=== PATIENT | female | born 1985 | race Caucasian/White ===

== ENCOUNTER 2023-06-24 02:30 | Emergency (ER) | payer OTHER, SELFPAY ==
[2023-06-24 02:35] VITALS: BP 124/82; PULSE 63; RESP 18; TEMP 36.4; O2SAT 97; BMI 33.4
--- NOTE | 2023-06-24 03:57 | ED.BACK ---
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 this happened at work MD elicited complaint: other (R trapezius pain) Pertinent past history: recent trauma Onset (ago): hour(s) (few) Timing: constant Severity: moderate Similar Symptoms Previously: No Quality: burning and sharp Location: right upper back Radiation: other (across shoulder) Exacerbating factors: immobilization Relieving factors: movement Context: while lifting and turning/twisting Associated symptoms: denies other symptoms Work related injury: Yes Related Data Previous Rx's Medication Instructions Recorded cyclobenzaprine 10 mg tablet 10 mg PO TID PRN muscle spasm #20 06/24/23 tabs lidocaine 5 % topical patch 1 patch topical DAILY #30 ea 06/24/23 Allergies Allergy/AdvReac Type Severity Reaction Status Date / Time No Known Allergies Allergy Verified 06/24/23 02:33 Review of Systems Review of Systems: Constitutional : No Weight loss, No Fever, No Chills, ENT/Mouth : No Hearing loss, No Ear Pain, No Nasal Congestion, No Sinus Pain, No Hoarseness, No sore throat, No Rhinorrhea, No Swallowing Difficulty Cardiovascular : No Chest Pain, No SOB Respiratory : No Cough, No Dyspnea Gastrointestinal : No Nausea, No Vomiting, No Diarrhea, No abdominal Pain, No Hematochezia, No Melena Genitourinary : No Dysuria, No Urinary Frequency, No Hematuria, No Urinary Incontinence, Musculoskeletal : positive back pain Skin : No Skin Lesions, No rash Neuro : No Weakness, No Numbness, No Paresthesias, no loss of bowel or bladder incontinence, no saddle anesthesia [facility] Past Medical History Attestation statement: The following information was validated with the patient. Source: old records reviewed Medical History No pertinent past medical history Social History Social History (Updated 06/24/23 @ 04:13 by Dora Hsieh DO) Patient Tobacco Use Status: Never used Tobacco Physical Exam Vital Signs: Vital Signs: Last Vital Signs Temp 97.6 F 06/24/23 02:35 Pulse 63 06/24/23 02:35 Resp 18 06/24/23 02:35 BP 124/82 06/24/23 02:35 Pulse Ox 97 06/24/23 02:35 O2 Del Method Room Air 06/24/23 02:35 BMI result Body Mass Index 33.4 Appearance: Alert. Oriented X3. No acute distress. Eyes: Pupils equal, round and reactive to light. ENT: Pharynx normal. Neck: Normal inspection. Neck supple. Back: R trapezius ttp with obvious swelling though it is mild distal NV intact the rotator cuff testing is normal neg spurling test of the neck CVS: Normal heart rate and rhythm. Pulses normal. Respiratory: No respiratory distress. Breath sounds normal. Abdomen: Soft and nontender. Skin: Skin warm and dry. Normal skin color. Extremities: No lower extremity edema. Neuro: Oriented X 3. No motor deficit. No sensory deficit. Medical Decision Making Medical Decision Making MDM Narrative: 37 yo female otherwise healthy NV intact here with R trapezius likely tear following heavy lifting no signs of cervical radiculopathy will start on muscle relaxers and lidocaine patches put out of work. no fracture suspected. Differential Diagnosis Differential Diagnoses: The differential diagnosis associated with the presentation includes strain, tear, sprain Prescription Management I considered prescription management with: Pain Medication and Other Discharge Plan Discharge Clinical Impression: Strain of thoracic back region Patient Disposition: Home, Self-Care Instructions: Muscle Strain (ED) Additional Instructions: return for numbness, weakness worsening symptoms you need to follow up with work connection on Monday to get cleared for work Prescriptions: New cyclobenzaprine 10 mg tablet 10 mg PO TID PRN (Reason: muscle spasm) Qty: 20 0RF lidocaine 5 % adhesive patch,medicated 1 patch topical DAILY Qty: 30 0RF Rx Instructions: leave on most painful area for up to 12 hrs Referrals: Alexei Barnes MD [Physician] - (any provider) Stand Alone Forms: Work/School Release
[2023-06-24 04:00] VITALS: BP 113/73; PULSE 54; RESP 16; TEMP 36.8; O2SAT 100
[2023-06-24] MEDS: Cyclobenzaprine HCl 10 MG TABLET PO (04:24)
[2023-06-24] MEDS: Lidocaine 4 % Patch ADH..PATCH 1 PATCH TRANSDERMA (04:24)
[2023-06-24 04:28] VITALS: BP 113/73; PULSE 54; RESP 16; TEMP 36.8; O2SAT 100
== END 2023-06-24 04:33 | disposition home or self-care (01) ==
PROVIDERS: Emergency Provider Emergency Medicine; PCP Internal Medicine
DX: S29.012A Strain of muscle and tendon of back wall of thorax, initial encounter (principal); X50.9XXA Other and unspecified overexertion or strenuous movements or postures, initial encounter; Y93.F2 Activity, caregiving, lifting; Y92.89 Other specified places as the place of occurrence of the external cause; Y99.0 Civilian activity done for income or pay; M54.89 Other dorsalgia
CPT/HCPCS: 99283

== ENCOUNTER → 2023-06-28 13:05 | Outpatient (BNVA) | payer OTHER, SELFPAY | PROVIDERS: PCP Internal Medicine; Visit Provider Physician Assistant | DX: Z13.89 Encounter for screening for other disorder (principal) | CPT/HCPCS: 99204 ==

== ENCOUNTER → 2023-06-30 15:32 | Outpatient (BNVA) | payer OTHER, SELFPAY | PROVIDERS: PCP Internal Medicine; Visit Provider Physician Assistant | DX: Z13.89 Encounter for screening for other disorder (principal) | CPT/HCPCS: 99213 ==

== ENCOUNTER → 2023-07-14 07:49 | Outpatient (BNVA) | payer OTHER, SELFPAY | PROVIDERS: PCP Internal Medicine; Visit Provider Physician Assistant | DX: Z13.89 Encounter for screening for other disorder (principal) | CPT/HCPCS: 99213 ==

== ENCOUNTER → 2023-08-03 09:35 | Outpatient (BNVA) | payer OTHER, SELFPAY | PROVIDERS: PCP Internal Medicine; Visit Provider Physician Assistant | DX: Z13.89 Encounter for screening for other disorder (principal) | CPT/HCPCS: 99213 ==

== ENCOUNTER → 2023-08-14 07:46 | Outpatient (BNVA) | payer OTHER, SELFPAY | PROVIDERS: PCP Internal Medicine; Visit Provider Physician Assistant Medical | DX: Z13.89 Encounter for screening for other disorder (principal) | CPT/HCPCS: 99213 ==

== ENCOUNTER → 2023-08-31 09:18 | Outpatient (BNVA) | payer OTHER, SELFPAY | PROVIDERS: PCP Internal Medicine; Visit Provider Physician Assistant Medical | DX: Z13.89 Encounter for screening for other disorder (principal) | CPT/HCPCS: 99213 ==

== ENCOUNTER 2023-09-07 08:00 | Outpatient (RCR) | payer OTHER, SELFPAY ==
--- NOTE | 2023-07-14 16:16 | MHC.PT.EP ---
[facility] [place] Office [place] Office [place] Office [address] Adam Vargas [address] [phone] F: [phone] F: [phone] F: [phone] F: [phone] Physical Therapy Plan of Care Date of Evaluation: 07/14/23 Date of Surgery: Diagnosis: RIGHT shoulder and upper back strain/trapezius strain (RS) Assessment: Patient is a pleasant 37 y.o. 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 PT diagnosis is trapezius strain. Patient impairments include portual imbalances, limited ROM, weakness, pain. Patient current functional limitations are unable to perform work tasks as RN, reaching, lift/carrying, reaching behind the back, holding arm to wash hair, difficulty with undershirts. Patient will benefit from skilled PT to address aforementioned impairments and functional limitations to meet established goals. Frequency and Duration: The patient will be seen 2-3x/week for 4 weeks Short Term Goals: 2 weeks Patient demonstrates consistency and independence with HEP to self manage symptoms. Identity Access Management Architect Goals: 4 weeks Patient presents with increased cervical rotation 75 degrees bilaterally to look over shoulders when driving. Patient presents with increased shoulder flexion 5/5 with endurance to reach/lift overhead without sxs. Treatment Plan: Modalities to reduce pain, spasms and effusion. Manual therapy to restore motion and function. Therapeutic exercise to improve strength and flexibility. Neuromuscular re-education for posture and balance. Therapeutic activities to return to functional activities of daily living. Electronically signed by: Maik Cesar, PT, DPT Please sign and return to therapist. Thank you for your referral.
== END 2023-10-06 08:39 | disposition home or self-care (01) ==
LOC: HO.PT 08:00
PROVIDERS: PCP Internal Medicine; Visit Provider Physician Assistant
DX: M54.6 Pain in thoracic spine (principal); S46.911D Strain of unspecified muscle, fascia and tendon at shoulder and upper arm level, right arm, subsequent encounter
CPT/HCPCS: 97014; 97035; 97110; 97112; 97140; 97161; 97530

== ENCOUNTER → 2023-09-26 12:18 | Outpatient (BNVA) | payer OTHER, SELFPAY | PROVIDERS: PCP Internal Medicine; Visit Provider Registered Nurse | DX: Z13.89 Encounter for screening for other disorder (principal) | CPT/HCPCS: 99213 ==